=== PATIENT | male | born 1995 | race Caucasian/White ===

== ENCOUNTER 2017-06-14 11:47 | Emergency (ER) | payer MEDICAID ==
[2017-06-14 12:10] VITALS: BMI 21.9
[2017-06-14 12:12] VITALS: TEMP 98.1
--- NOTE | 2017-06-14 12:53 | C.PDOC ---
History Of Present Illness 21 y/o male c/o productive cough for 2 weeks. Reports that today he coughed so much that he had blood tinged sputum which prompted the visit. Denies fever, ear pain, rash, runny nose. No chest pain or SOB. Time Seen by Provider: 06/14/17 12:16 Chief Complaint (Nursing): Cough, Cold, Congestion History Per: Patient History/Exam Limitations: no limitations Onset/Duration Of Symptoms: Days (2 weeks) Current Symptoms Are (Timing): Still Present Associated Symptoms: denies: Fever, Chills Ear Symptoms: Bilateral: None Severity: Mild Recent travel outside of the [place]: No Additional History Per: Patient Past Medical History Reviewed: Historical Data, Nursing Documentation, Vital Signs Vital Signs: Last Vital Signs Temp 98.1 F 06/14/17 12:11 Pulse 74 06/14/17 13:12 Resp 16 06/14/17 13:12 BP 119/69 06/14/17 13:12 Pulse Ox 98 06/14/17 13:12 Surgical History: Appendectomy Family History: States: Unknown Family Hx - Social History Hx Alcohol Use: No Hx Substance Use: No - Immunization History Hx Tetanus Toxoid Vaccination: No Hx Influenza Vaccination: No Hx Pneumococcal Vaccination: No Review Of Systems Except As Marked, All Systems Reviewed And Found Negative. Constitutional: Negative for: Fever, Chills ENT: Negative for: Ear Pain, Nose Discharge Cardiovascular: Negative for: Chest Pain Respiratory: Positive for: Cough (with blood tinged sputum). Negative for: Shortness of Breath, SOB with Excertion, Wheezing Gastrointestinal: Negative for: Nausea, Vomiting, Abdominal Pain, Diarrhea, Constipation Skin: Negative for: Rash Physical Exam - Physical Exam Appears: Well, Non-toxic, No Acute Distress Skin: Warm, Dry Head: Atraumatic, Normacephalic Eye(s): bilateral: Normal Inspection Ear(s): Bilateral: Normal Oral Mucosa: Moist Throat: Normal, No Erythema Neck: Supple Cardiovascular: Rhythm Regular Respiratory: Normal Breath Sounds, No Rales, No Rhonchi, No Wheezing Gastrointestinal/Abdominal: Soft, No Tenderness Back: Normal Inspection, No CVA Tenderness Extremity: Normal ROM Neurological/Psych: Oriented x3, Normal Speech, Other (Awake and alert, appropriate for age) ED Course And Treatment O2 Sat by Pulse Oximetry: 99 (RA) Pulse Ox Interpretation: Normal Medical Decision Making Medical Decision Making: Impression: * Productive cough for 2 weeks. Plans: * Z-Dionicio * Tessalon Cxray is negative. Patient has normal vitals and is afebrile. He is in no distress at this time and lungs cta b/l. Due to chronic nature of cough, will dc with zpack and cough medication. Disposition - Disposition Disposition: HOME/ ROUTINE Disposition Time: 12:54 Condition: GOOD Additional Instructions: Take full course of antibiotics for 4 days. Use cough medication as needed. Return to ED if condition worsens. Prescriptions: Azithromycin 250 mg PO DAILY #4 tab Benzonatate [Tessalon Perles] 100 mg PO TID PRN #20 sgl PRN Reason: Cough Instructions: Upper Respiratory Infection (ED) Forms: [employer] ([place]) - Clinical Impression Clinical Impression: Cough - Scribe Statement The provider has reviewed the documentation as recorded by the Scribe Jermaine syed All medical record entries made by the Scribe were at my direction and personally dictated by me. I have reviewed the chart and agree that the record accurately reflects my personal performance of the history, physical exam, medical decision making, and the department course for this patient. I have also personally directed, reviewed, and agree with the discharge instructions and disposition.
[2017-06-14 13:12] VITALS: BP 119/69; PULSE 74; RESP 16
--- NOTE | 2017-06-14 14:18 | RAD ---
HISTORY: cough COMPARISON: No prior. TECHNIQUE: Chest PA and lateral FINDINGS: LUNGS: No active pulmonary disease. PLEURA: No significant pleural effusion identified. No pneumothorax apparent. CARDIOVASCULAR: Normal. OSSEOUS STRUCTURES: No significant abnormalities. VISUALIZED UPPER ABDOMEN: Normal. OTHER FINDINGS: None. IMPRESSION: No active disease.
[2017-06-14 14:33] VITALS: O2SAT 99
== END 2017-06-14 13:12 | disposition home or self-care (01) ==
LOC: C.ER 11:47
DX: R05 Cough (principal)